=== PATIENT | female | born 1975 | race Caucasian/White ===

== ENCOUNTER 2017-10-29 15:10 | Emergency (ER) | payer BC ==
[~2017-10-29] VITALS: Ht 162.6 cm; Wt 77.6 kg
[~2017-10-29 15:10] MED LIST: ATIVAN0.5 MG PO; CYMBALTA30 MG PO; HORIZANT600 MG; LORTAB 51 EA PO; NORCO 7.5-3251 EACH PO; PREDNISONE5 MG; ZOVIRAX400 MG
--- OUTSIDE RECORDS SUMMARY | 2017-10-29 15:13 | XMS REPORT ---
Author Author [facility] Address Unknown Phone Unavailable Care Team Providers Care Manager Rental Name Role Phone NITESH PERRY Unavailable Unavailable Problems This patient has no known problems. Allergies, Adverse Reactions, Alerts This patient has no known allergies or adverse reactions. Medications This patient has no known medications. Results Test Description Test Time Test Comments Text Results Atomic Results Result Comments C-SPINE 2 VIEWS AP LATERAL [place] [id number] Patient Name: KENY BYERS MR #: [id number] : 1975 Age/Sex: 42/F Req #: [id number] Adm Physician: NITESH PERRY MD Ordered by : NITESH PERRY MD Report #: [id number] Location: MED/SURG Room/Bed: [facility] Procedure: [id number] DX/C-SPINE 2 VIEWS AP LATERAL Exam Date: 06/13/17 Exam Time: 0630 REPORT STATUS: Signed PROCEDURE: C-SPINE 2 VIEWS AP T LATERAL COMPARISON: None. INDICATIONS: POST OP FOLLOW UP FINDINGS: 2 views of the cervical spine performed frontal and lateral shows anterior fusion hardware and interbody spacers from C5-C7. Vertebral body heights are maintained without subluxation evident. There is mild prevertebral soft tissue swelling. Straightening of the cervical curve may be positional. CONCLUSION: Postoperative appearance with anterior fusion hardware from C5-C7. Dictated by: Pablo Zazueta M.D. on 06/13/2017 at 8:52 Electronically approved by: Pablo Zazueta M.D. on 06/13/2017 at 8:52 Dictated By: PABLO ZAZUETA MD 1 Transcribed By: ABDIFATAH on 06/13/17851 COPY TO : NITESH PERRY MD CHEST 2 VIEWS [place] [address] Patient Name: KENY BYERS MR #: [id number] : 1975 Age/Sex: 42/F Req # : [id number] Adm Physician: Ordered by: NITESH PERRY MD Report #: [id number] Location: OR Room/Bed: Procedure: [id number] DX/CHEST 2 VIEWS Exam Date: 06/11/17 Exam Time: 1620 REPORT STATUS: Signed PROCEDURE: Frontal and lateral views of the chest. COMPARISON: None. INDICATIONS: PREOPERATIVE FOR CERVICAL SPINE SURGERY FINDINGS: Lines/tubes: None. Lungs: The lungs are well inflated and clear. There is no evidence of pneumonia or pulmonary edema. Pleura: There is no pleural effusion or pneumothorax. Heart and mediastinum: The heart and the mediastinum are normal. Bones: No acute bony abnormality. Mild anterior wedging of T11. Cholecystectomy clips. IMPRESSION: 1. No acute cardiopulmonary disease. Obie Condon M.D. Dictated by: Obie Condon M.D. on 06/11/2017 at 17:20 Electronically approved by: Obie Condon M.D. on 06/11/2017 at 17:20 Dictated By: ROES CONDON MD, MD 19 COPY TO: NITESH PERRY MD
[2017-10-29] MEDS ORDERED: DEXAMETHASONE SOD PHOS 10 MG/1 ML VIAL INJ ONE (15:30)
[2017-10-29] MEDS ORDERED: VALACYCLOVIR HCL 500 MG TAB PO ONE ×2 (15:30→16:45)
== END 2017-10-29 16:57 | disposition home or self-care (01) ==
LOC: ER 15:10
DX: G51.0 Bell's palsy (principal); R53.1 Weakness
CPT/HCPCS: 99283; J1100

== ENCOUNTER → 2022-11-27 | Outpatient (CLI) | payer BC | LOC: US 08:28 | PROVIDERS: ATTEND Internal Medicine | DX: D18.09 Hemangioma of other sites (principal); D18.03 Hemangioma of intra-abdominal structures | CPT/HCPCS: 76705 ==